=== PATIENT | male | born 1975 | race African-American/Black ===

== ENCOUNTER 2017-11-19 09:41 | Emergency (ER) | payer OTHER ==
[~2017-11-19] VITALS: Ht 182.9 cm; Wt 81.7 kg
[~2017-11-19 09:41] MED LIST: NOHOMEMEDICATIONS
[2017-11-19 10:10] VITALS: BP 126/90
== END 2017-11-19 10:10 | disposition home or self-care (01) ==
LOC: M.ERS 09:41
DX: M54.5 Low back pain (principal)

== ENCOUNTER 2018-08-13 16:46 | Emergency (ER) | payer OTHER ==
[~2018-08-13] VITALS: Ht 180.3 cm; Wt 81.7 kg
[2018-08-13] MEDS ORDERED: CLEOCIN HCL300 MG PO (17:09)
[2018-08-13] MEDS ORDERED: ACETAMINOPHEN-1 EAC1 PO (17:09)
[2018-08-13] MEDS ORDERED: NAPROSYN500 MG PO (17:09)
[2018-08-13 17:18] VITALS: BP 128/78
== END 2018-08-13 17:18 | disposition home or self-care (01) ==
LOC: M.ERS 16:46
DX: K02.9 Dental caries, unspecified (principal); F17.200 Nicotine dependence, unspecified, uncomplicated

== ENCOUNTER 2020-04-28 19:13 | Emergency (ER) | payer OTHER ==
[~2020-04-28] VITALS: Ht 172.7 cm; Wt 81.7 kg
[~2020-04-28 19:13] MED LIST changes: +ACETAMINOPHEN-1 EAC1 PO; +CLEOCIN HCL300 MG PO; +NAPROSYN500 MG PO
[2020-04-28] MEDS ORDERED: AMOXIL 875 MG875 M1 PO (19:59)
[2020-04-28 20:07] VITALS: BP 131/76
== END 2020-04-28 20:07 | disposition home or self-care (01) ==
LOC: M.ERS 19:13
DX: K08.89 Other specified disorders of teeth and supporting structures (principal)

== ENCOUNTER 2020-07-14 15:54 | Emergency (ER) | payer OTHER ==
[~2020-07-14] VITALS: Ht 182.9 cm; Wt 83.9 kg
[~2020-07-14 15:54] MED LIST changes: +AMOXIL 875 MG875 M1 PO
[2020-07-14] MEDS ORDERED: PENICILLIN V P500 MG PO (16:33)
[2020-07-14 16:59] VITALS: BP 142/88
== END 2020-07-14 17:01 | disposition home or self-care (01) ==
LOC: M.ERS 15:54
DX: K04.7 Periapical abscess without sinus (principal)

== ENCOUNTER 2020-10-06 20:38 | Emergency (ER) | payer OTHER ==
[~2020-10-06] VITALS: Ht 182.9 cm; Wt 81.7 kg
[~2020-10-06 20:38] MED LIST changes: +PENICILLIN V P500 MG PO
[2020-10-06 20:51] VITALS: BP 141/91
[2020-10-06] MEDS ORDERED: LIDOCAINE VISC100 ML SWISH&SPIT (20:56)
[2020-10-06] MEDS ORDERED: AMOXIL 875 MG875 M1 PO (20:56)
== END 2020-10-06 21:18 | disposition home or self-care (01) ==
LOC: M.ERS 20:38
DX: K04.7 Periapical abscess without sinus (principal)